=== PATIENT | male | born 1975 | race Hispanic/Latino ===

== ENCOUNTER 2021-03-18 23:50 | Emergency (ER) | payer SELFPAY ==
--- NOTE | 2021-03-19 00:38 | EDPHYS ---
Physician Documentation [facility] Name: Marek Meadows Age: 46 yrs Sex: Male : 1975 Arrival Date: 03/18/2021 Time: 23:58 Bed 16 Private MD: ED Physician Dexter Medina HPI: 03/19 00:03 This 46 yrs old Male presents to ER via Ambulatory with complaints of Hand kb Injury. 00:03 The patient or guardian reports injury, pain, swelling, tenderness. The complaints kb affect the dorsum of right hand. 00:03 Context: The problem was sustained outdoors, resulted from a direct blow, tire iron. kb Onset: The symptoms/episode began/occurred 3 day(s) ago. Modifying factors: The symptoms are alleviated by nothing, the symptoms are aggravated by nothing. Associated signs and symptoms: The patient has no apparent associated signs or symptoms. Severity of symptoms: At their worst the symptoms were mild, in the emergency department the symptoms are unchanged. The patient has not experienced similar symptoms in the past. The patient has not recently seen a physician. Pt reports he was changing a tire and the tire iron fell onto right hand. Reports pain and swelling since then. Historical: - Allergies: 00:03 No Known Allergies; lp1 - Home Meds: 00:03 None [Active]; lp1 - PMHx: 00:03 None; lp1 - PSHx: 00:03 None; lp1 - Immunization history:: Adult Immunizations up to date. - Social history:: Smoking status: Patient denies any tobacco usage or history of. ROS: 00:01 Constitutional: Negative for fever, chills, and weight loss. kb 00:01 MS/extremity: Positive for pain, swelling, tenderness, of the dorsum of right hand. 00:01 All other systems are negative. Exam: 00:01 Constitutional: This is a well developed, well nourished patient who is awake, alert, kb and in no acute distress. Head/Face: Normocephalic, atraumatic. ENT: Moist Mucous membranes Respiratory: Respirations even and unlabored. No increased work of breathing, no retractions or nasal flaring. Skin: Warm, dry with normal turgor. Normal color. Neuro: Awake and alert, GCS 15, oriented to person, place, time, and situation. Moves all extremities. Normal gait. Psych: Awake, alert, with orientation to person, place and time. Behavior, mood, and affect are within normal limits. 00:01 Musculoskeletal/extremity: Extremities: grossly normal except: noted in the dorsum of right hand: pain, swelling, tenderness, ROM: intact in all extremities, Circulation is intact in all extremities. Sensation intact. Vital Signs: 03/18 23:53 BP 156 / 91 Supine; Pulse 67; Resp 16; Temp 98.3(O); Pulse Ox 98% on R/A; Pain 9/10; fu 03/19 00:00 BP 156 / 91; Pulse 68; Resp 16; Temp 98.3; Pulse Ox 98% on R/A; Weight 54.43 kg (R); lp1 Height 5 ft. 8 in. (172.72 cm); Pain 9/10; 01:00 BP 150 / 98; Pulse 67; Resp 16; Pulse Ox 100% on R/A; fu 00:00 Body Mass Index 18.25 (54.43 kg, 172.72 cm) lp1 MDM: 03/18 23:59 Patient medically screened. kb 03/19 00:01 Data reviewed: vital signs, nurses notes. Data interpreted: Pulse oximetry: on room air kb is 100 %. Interpretation: normal. 00:36 Counseling: I had a detailed discussion with the patient and/or guardian regarding: the kb historical points, exam findings, and any diagnostic results supporting the discharge/admit diagnosis, radiology results, the need for outpatient follow up, a family practitioner, to return to the emergency department if symptoms worsen or persist or if there are any questions or concerns that arise at home. 03/18 23:59 Order name: Hand Right 3 View XRAY kb 03/19 00:36 Order name: Ulnar Gutter splint; Complete Time: 01:12 kb Administered Medications: No medications were administered Disposition: 07:36 Co-signature as Attending Physician, Dexter Medina MD. [email or web address] Disposition Summary: 03/19/21 00:37 Discharge Ordered Location: Home kb Condition: Stable kb Diagnosis - Pain in right hand kb Followup: kb - With: Emergency Department - When: As needed - Reason: Worsening of condition Followup: kb - With: Private Physician - When: 2 - 3 days - Reason: Recheck today's complaints, Continuance of care, Re-evaluation by your physician Discharge Instructions: - Discharge Summary Sheet kb - Musculoskeletal Pain kb - Hand Contusion, [id number] kb Forms: - Medication Reconciliation Form kb - Thank You Letter kb - Antibiotic Education kb - Prescription Opioid Use kb Signatures: Dispatcher [employer] EDIsabel Montgomery, Flaquita Baldwin RN RN lp1 Dexter Medina MD MD [email or web address]
--- NOTE | 2021-03-19 00:38 | ER ---
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 Coronavirus screen: At this time, the client does not indicate any symptoms associated with coronavirus-19. Ebola Screen: No symptoms or risks identified at this time. Initial Sepsis Screen: Does the patient meet any 2 criteria? No. Patient's initial sepsis screen is negative. Does the patient have a suspected source of infection? No. Patient's initial sepsis screen is negative. Risk Assessment: Do you want to hurt yourself or someone else? Patient reports no desire to harm self or others. Onset of symptoms was March 15, 2021. 00:00 Method Of Arrival: Ambulatory lp1 00:00 Acuity: TRACY 4 lp1 Triage Assessment: 00:00 General: Appears in no apparent distress. Behavior is calm, cooperative, appropriate fu for age. Injury Description: right hand swelling. Historical: - Allergies: 00:03 No Known Allergies; lp1 - Home Meds: 00:03 None [Active]; lp1 - PMHx: 00:03 None; lp1 - PSHx: 00:03 None; lp1 - Immunization history:: Adult Immunizations up to date. - Social history:: Smoking status: Patient denies any tobacco usage or history of. Screenin:02 Abuse screen: Denies threats or abuse. Denies injuries from another. Nutritional lp1 screening: No deficits noted. Tuberculosis screening: No symptoms or risk factors identified. Fall Risk None identified. Assessment: 03/18 23:58 General: Appears in no apparent distress. Behavior is calm, cooperative, appropriate fu for age, Denies fever, feeling ill, fatigue, chills. Pain: Complains of pain in right hand Pain does not radiate. Pain currently is 9 out of 10 on a pain scale. Pain began 2-3 days ago. 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 limited ROM to right hand. Gait is steady, Speech is normal, Facial symmetry appears normal. Cardiovascular: No deficits noted. Respiratory: No deficits noted. GI: No deficits noted. Derm: Skin is intact. Musculoskeletal: Range of motion: limited in right hand Swelling present in right hand. 03/19 01:11 Reassessment: Patient and/or family updated on plan of care and expected duration. Pain fu level reassessed. Patient is alert, oriented x 3, equal unlabored respirations, skin warm/dry/pink. Vital Signs: 03/18 23:53 BP 156 / 91 Supine; Pulse 67; Resp 16; Temp 98.3(O); Pulse Ox 98% on R/A; Pain 9/10; fu 03/19 00:00 BP 156 / 91; Pulse 68; Resp 16; Temp 98.3; Pulse Ox 98% on R/A; Weight 54.43 kg (R); lp1 Height 5 ft. 8 in. (172.72 cm); Pain 9/10; 01:00 BP 150 / 98; Pulse 67; Resp 16; Pulse Ox 100% on R/A; fu 00:00 Body Mass Index 18.25 (54.43 kg, 172.72 cm) lp1 ED Course: 03/18 23:58 Patient arrived in ED. wm 23:58 Gwyn Hirsch, RAYA is Primary Nurse. fu 23:59 Isabel Pearl F[facility]-C [facility]. kb 23:59 Dexter Medina MD is Attending Physician. kb 03/19 00:02 Triage completed. lp1 00:02 Arm band placed on. lp1 00:03 Patient has correct armband on for positive identification. lp1 00:37 Hand Right 3 View XRAY In Process Unspecified. EDMS 01:13 ulnar gutter splint applied to right arm/hand. fu 01:13 No provider procedures requiring assistance completed. fu 01:15 Patient did not have IV access during this emergency room visit. fu Administered Medications: No medications were administered Outcome: 00:37 Discharge ordered by . kb 01:21 Discharged to home ambulatory. fu 01:21 Condition: good 01:21 Discharge instructions given to patient, significant other, Instructed on discharge instructions, follow up and referral plans. Demonstrated understanding of instructions, follow-up care, Prescriptions given X 0 01:22 Patient left the ED. fu Signatures: Dispatcher [employer] Isabel Winkler, HARRIETT DE LA CRUZ-Flaquita Roper, RN RN lp1 Gwyn Hirsch RN RN Polly Dempsey Corrections: (The following items were deleted from the chart) 00:08 03/18 22:53 BP 156 / 91 Supine; Pulse 67bpm; Resp 16bpm; Pulse Ox 98% RA; Temp 98.3F fu Oral; Pain 02/03; fu
[2021-03-19 01:27] VITALS: TEMP 98.3
[2021-03-19 01:29] VITALS: BP 150/98; O2SAT 100
--- NOTE | 2021-03-19 11:45 | RAD REPORT ---
EXAM DESCRIPTION: RAD - Hand Right 3 View - 03/19/2021 12:37 am CLINICAL HISTORY: PAIN COMPARISON: No comparisons FINDINGS: No acute fracture or dislocation seen. No aggressive marrow pattern is observed. Mild athe rosclerosis.
== END 2021-03-19 01:22 | disposition home or self-care (01) ==
LOC: ER 23:50
DX: M79.641 Pain in right hand (principal); W22.8XXA Striking against or struck by other objects, initial encounter; Y93.89 Activity, other specified; Y92.9 Unspecified place or not applicable
CPT/HCPCS: 99283